=== PATIENT | male | born 1990 | race Caucasian/White ===

== ENCOUNTER → 2016-09-10 | Outpatient (CLI) | payer BC ==
--- NOTE | 2016-09-10 13:24 | DIAGNOSTIC IMAGING REPORT ---
TESTICULAR ULTRASOUND HISTORY: Pain R GROIN PAIN, TESTICULAR PAIN COMPARISON: None. FINDINGS: Right testis: Maximum linear dimension 4.7 cm. Normal vascular flow. Small hydrocele Left testis: Maximum dimension 5.1 cm. Normal vascular flow. Small hydrocele. IMPRESSION: Normal testicular ultrasound. Small bilateral hydroceles. Electronically signed by: Toni Sibley M.D. 09/10/2016 1:22 PM Dictated Date/Time: 09/10/2016 1:22 PM
--- NOTE | 2016-09-10 13:24 | DIAGNOSTIC IMAGING REPORT ---
ULTRASOUND RIGHT GROIN NONVASCULAR CLINICAL HISTORY: Right groin discomfort. COMPARISON STUDY: No priors. FINDINGS: Real-time grayscale sonography of the right groin is performed to assess for inguinal hernia. There is no sonographic evidence of right inguinal hernia. No hernia could be elicited by having the patient perform the Valsalva maneuver. No right inguinal lymphadenopathy is seen. IMPRESSION: There is no sonographic evidence of right inguinal hernia as clinically queried. Electronically signed by: Minh Borden M.D. 09/10/2016 1:23 PM Dictated Date/Time: 09/10/2016 1:22 PM
== END | disposition home or self-care (01) ==
LOC: C.ULTRBC 12:52
PROVIDERS: ATTEND Surgery
DX: N50.811 Right testicular pain (principal); R10.31 Right lower quadrant pain